=== PATIENT | female | born 1965 | race Caucasian/White ===

== ENCOUNTER 2022-02-26 03:52 | Emergency (ER) | payer OTHER ==
[2022-02-26 04:01] VITALS: BP 135/84; PULSE 88; RESP 18; TEMP 99; BMI 44.2
[2022-02-26] MEDS ORDERED: DEXAMETHASONE LIQUID 0.5 MG/5 ML PO ONE (04:05)
[2022-02-26] MEDS ORDERED: DEXAMETHASONE SOD PHOSPHATE 10 MG/1 ML VIAL ONE (04:06)
== END 2022-02-26 04:17 | disposition home or self-care (01) ==
LOC: FER 03:52
DX: U07.1 COVID-19 (principal)
CPT/HCPCS: 0241U-QW; 99283-25